=== PATIENT | female | born 1980 | race Two or more races ===

== ENCOUNTER → 2018-06-14 | Outpatient (CLI) | payer BC ==
[2015-12-05 10:20] VITALS: BP 151/86
[~2018-06-14] MED LIST: LEVO50TA5 PO; LOSA100T14 PO; LOSA1TAB22 PO; OXYC1TAB15 PO
--- NOTE | 2018-06-14 12:16 | KCIC ---
Bilateral digital screening mammograms: Reason for examination: Routine screening. Comparison is made to previous study dated 11/09/2014. Interpretation was made with the benefit of CAD. The skin and nipples show no abnormalities. No abnormal axillary lymph nodes are seen. The breast parenchyma shows scattered fibroglandular density. (Breast density: Category B.) There appear to be small nodular densities in the right breast at approximately the 5:30 B position. These are fairly well-circumscribed and may represent cysts. Recommend further evaluation with ultrasound. There are no other dominant masses, suspicious calcifications or architectural distortions. Benign appearing calcifications are again seen. Impression: Small nodules at the 5:30 B position of the right breast. Recommend further evaluation with ultrasound. BI-RADS Category 0: Incomplete. Needs additional imaging evaluation. "Our facility is accredited by the [employer] Mammography [employer]." This patient's information has been entered into a reminder system for the patient to be notified with the results of her examination and a target date for the next mammogram. Electronically signed by: Kathy Almanza MD (06/14/2018 12:13 PM) [id number]
== END | disposition home or self-care (01) ==
LOC: KCIC MAMMO 08:59
PROVIDERS: ATTEND Physician Assistant Surgical
DX: Z12.31 Encounter for screening mammogram for malignant neoplasm of breast (principal); N63.14 Unspecified lump in the right breast, lower inner quadrant; Z98.890 Other specified postprocedural states
CPT/HCPCS: 77067

== ENCOUNTER → 2018-06-20 | Outpatient (CLI) | payer BC ==
[2015-12-05 10:20] VITALS: BP 151/86
--- NOTE | 2018-06-20 13:35 | KCIC ---
Right breast ultrasound COMPARISON: Mammogram June 14, 2018 and priors. HISTORY: Follow-up of right breast 5:30 B position low-density circumscribed mass on recent mammography. FINDINGS: At the right breast 5:30 position 4.5 cm from nipple there is a parallel oval circumscribed cluster of cysts with anechoic fluid and numerous internal septations measuring 9 x 7 x 3 mm, this is concordant with the mammographic finding in question. Imaging features are probably benign, typical of fibrocystic change. IMPRESSION: Subcentimeter cystic lesion of the right breast 5:30 position concordant with the mammographic lesion of interest. Imaging features are probably benign typical of fibrocystic change. Attention on follow-up right breast sonography in 6 months is advised. Continue annual screening mammography. Patient information is registered in the reminder system for date of the next mammogram. BI-RADS Category 3: Probably benign Electronically signed by: Sebastián Toth MD (06/20/2018 1:32 PM) [id number]
== END | disposition home or self-care (01) ==
LOC: KCIC US 13:03
PROVIDERS: ATTEND Physician Assistant Surgical
DX: N60.01 Solitary cyst of right breast (principal)
CPT/HCPCS: 76641

== ENCOUNTER → 2019-03-03 | Outpatient (CLI) | payer BC ==
[2015-12-05 10:20] VITALS: BP 151/86
--- NOTE | 2019-03-03 14:41 | KCIC ---
Right breast ultrasound: Reason for examination: Follow-up nodule. Comparison is made to previous study dated 06/20/2018. Ultrasound examination was performed to the area of previous concern and at the axilla. At the 5:30 position 4.5 cm from the nipple, there continues to be an 8.5 mm fibrocystic lesion which is stable. There are no new cystic or solid lesion seen at the site. No abnormal appearing lymph nodes are seen in the axilla. IMPRESSION: 8.5 mm fibrocystic lesion at the 5:30 position which is unchanged. Recommend continued 6 month follow-up to be performed at the time of bilateral mammograms. BI-RADS Category 3: Probably Benign. "Our facility is accredited by the [employer] Mammography Program." This patient's information has been entered into a reminder system for the patient to be notified with the results of her examination and a target date for the next mammogram. Electronically signed by: Kathy Almanza MD (03/03/2019 2:38 PM) [id number]
== END | disposition home or self-care (01) ==
LOC: KCIC US 13:48
PROVIDERS: ATTEND Physician Assistant Surgical
DX: N64.89 Other specified disorders of breast (principal)
CPT/HCPCS: 76641